=== PATIENT | male | born 1945 | race Caucasian/White ===

== ENCOUNTER → 2020-12-01 11:56 | Outpatient (CLI) | payer MEDICARE, OTHER, SELFPAY | PROVIDERS: PCP Nurse Practitioner Family; Visit Provider Orthopaedic Surgery Orthopaedic Trauma | DX: Z01.818 Encounter for other preprocedural examination (principal); Z20.822 Contact with and (suspected) exposure to COVID-19; S82.853A Displaced trimalleolar fracture of unspecified lower leg, initial encounter for closed fracture | CPT/HCPCS: U0003 ==